=== PATIENT | female | born 1965 | race Caucasian/White ===

== ENCOUNTER → 2017-07-10 | Day surgery (SDC) | payer BC ==
[2017-07-10 07:25] VITALS: RESP 16; BMI 23.8
[2017-07-10 09:25] VITALS: BP 164/91; PULSE 71; TEMP 98.9
--- NOTE | 2017-07-10 10:35 | PCN ---
PROCEDURE NOTE Marion is a 52-year-old white female who on routine mammogram was noted to have new microcalcifications in the right breast just lateral and inferior area of the breast. Recommendations, there were actually 2 clusters of calcifications which looked very similar in close proximity to each other and it was recommended that at least 1 of these be sampled. The patient had a physical examination performed and on multi- positional exam of each breast, no dominant mass or nodules of concern were noted. The patient had no axillary adenopathy of concern. PROCEDURE: The patient was taken to the in the stereotactic unit and after review of the radiographs, it was determined to approach the lesion CC from below. The patient's breast was placed in the aperture and radiographs were obtained to identify the microcalcifications. After this had been accomplished, the breast was prepped in a sterile fashion using Betadine; 1% lidocaine was used to anesthetize the skin. This was lidocaine without epinephrine. A vacuum-assisted 9 gauge needle was driven to the correct coordinates and multiple core biopsies, 13 were obtained. Radiograph of the specimen revealed that the area of concern had been adequately sampled with microcalcifications in the specimen. Following this, a secure savi clip was placed. The specimen was sent to pathology and patient will follow with Dr. Bonilla in 1 week. Please note that prior to the procedure, risks and benefits of the procedure were thoroughly discussed with the patient and alternatives to stereo biopsy were not felt to be applicable in this case, IE open biopsy or ultrasound core biopsy. MMODL / IJN: [id number] /
--- NOTE | 2017-07-10 11:43 | MM ---
EXAMINATION TYPE: MG stereo VAD BX RT DATE OF EXAM: 07/10/2017 COMPARISON: Outside diagnostic and screening exam dated 06/21/2017 and 06/07/2017 respectively. CLINICAL HISTORY: Indeterminate right breast calcifications within the lower, central and slightly outer quadrant TECHNIQUE: Stereotactic guided core biopsy of right breast. FINDINGS: The procedure of stereotactic guided core biopsy was explained to the patient. Benefits, alternatives, and risks were discussed. An informed consent was then obtained. Preprocedural timeout was performed. [facility] was chosen. Shortness pathway was CC from below approach. I performed the localization, then surgeon, Dr. Chao performed the remainder of the procedure. A vacuum assisted biopsy gun was used to obtain multiple core samples. The patient tolerated the procedure well without any immediate complication. The patient was kept in the radiology department for short stay after the procedure and then discharged home in stable condition. Targeted calcifications are identified in specimen mammogram. Post biopsy mammogram shows the T-shaped biopsy marker to appear in satisfactory position relative to the targeted area of concern on the preprocedure images. IMPRESSION: SUCCESSFUL, UNCOMPLICATED STEREOTACTIC GUIDED CORE BIOPSY OF AN INDETERMINATE GROUP OF CALCIFICATIONS WITH LOW SUSPICION IN THE RIGHT BREAST, FULL PATHOLOGY RESULTS TO FOLLOW. Pathology Results: Benign RIGHT BREAST, STEREOTACTIC CORE BIOPSIES: FIBROCYSTIC AND FIBROADENOMATOUS CHANGE WITH FOCI OF DYSTROPHIC CALCIFICATION. Recommendation Follow up mammogram of the right breast in 6 months. MTDD
== END ==
LOC: RADMAMWWP 07:13
PROVIDERS: ATTEND Surgery
DX: N60.11 Diffuse cystic mastopathy of right breast (principal); R92.1 Mammographic calcification found on diagnostic imaging of breast
CPT/HCPCS: 88305; 19081; A4648; J2001

== ENCOUNTER → 2018-01-11 | Outpatient (CLI) | payer BC ==
--- NOTE | 2018-01-11 10:25 | MM ---
Reason for exam: follow-up at short interval from prior study. History: Patient is postmenopausal and is nulliparous. Family history of breast cancer in maternal aunt at age 55 and breast cancer in maternal grandmother at age 70. Benign MG stereo VAD BX RT of the right breast, July 10, 2017. Taking estrogen beginning at age 52. Physical Findings: Nurse did not find any significant physical abnormalities on exam. MG 3D Diag Mammo W/Cad RT CC and MLO view(s) were taken of the right breast. The breast tissue is extremely dense which could obscure a lesion on mammography. Stable scattered calcifications. Previous mammotome biopsy in the right breast. No significant new findings when compared with previous films. These results were verbally communicated with the patient and result sheet given to the patient on 01/11/18. ASSESSMENT: Benign, BI-RAD 2 RECOMMENDATION: Routine screening mammogram of both breasts in 6 months. Back on schedule.
== END | disposition home or self-care (01) ==
LOC: RADMAMWWP 09:33
PROVIDERS: ATTEND Obstetrics & Gynecology
DX: R92.8 Other abnormal and inconclusive findings on diagnostic imaging of breast (principal)
CPT/HCPCS: 77061; 77065

== ENCOUNTER → 2018-08-06 | Outpatient (CLI) | payer BC ==
--- NOTE | 2018-08-07 09:13 | MM ---
Reason for exam: screening (asymptomatic). Last mammogram was performed 7 months ago. History: Patient is postmenopausal and is nulliparous. Family history of breast cancer in maternal aunt at age 55 and breast cancer in maternal grandmother at age 70. Benign MG stereo VAD BX RT of the right breast, July 10, 2017. Taking estrogen beginning at age 52. Physical Findings: A clinical breast exam by your physician is recommended on an annual basis and results should be correlated with mammographic findings. MG 3D Screening Mammo W/Cad Bilateral CC and MLO view(s) were taken. Prior study comparison: January 11, 2018, right breast MG 3d diag mammo w/cad RT. June 07, 2017, mammogram. The breast tissue is extremely dense which could obscure a lesion on mammography. Finding: There are typically benign vascular, dystrophic, round calcifications in both breasts. Previous mammotome biopsy in the right breast. There is no discrete abnormality. ASSESSMENT: Benign, BI-RAD 2 RECOMMENDATION: Routine screening mammogram of both breasts in 1 year.
== END ==
LOC: RADMAMWWP 11:18
PROVIDERS: ATTEND Family Medicine
DX: Z12.31 Encounter for screening mammogram for malignant neoplasm of breast (principal)
CPT/HCPCS: 77063; 77067

== ENCOUNTER → 2020-02-20 | Outpatient (CLI) | payer BC ==
--- NOTE | 2020-02-24 08:20 | MM ---
Reason for exam: screening (asymptomatic). Last mammogram was performed 1 year and 6 months ago. History: Patient is postmenopausal and is nulliparous. Family history of breast cancer in maternal aunt at age 55 and breast cancer in maternal grandmother at age 70. Benign MG stereo VAD BX RT of the right breast, July 10, 2017. Taking estrogen beginning at age 52. Physical Findings: A clinical breast exam by your physician is recommended on an annual basis and results should be correlated with mammographic findings. MG 3D Screening Mammo W/Cad Bilateral CC and MLO view(s) were taken. Prior study comparison: August 06, 2018, bilateral MG 3d screening mammo w/cad. January 11, 2018, right breast MG 3d diag mammo w/cad RT. The breast tissue is extremely dense which could obscure a lesion on mammography. Benign appearing bilateral calcifications. ASSESSMENT: Benign, BI-RAD 2 RECOMMENDATION: Routine screening mammogram of both breasts in 1 year.
== END | disposition home or self-care (01) ==
LOC: RADMAMWWP 12:53
PROVIDERS: ATTEND Obstetrics & Gynecology
DX: Z12.31 Encounter for screening mammogram for malignant neoplasm of breast (principal); Z80.3 Family history of malignant neoplasm of breast
CPT/HCPCS: 77063; 77067

== ENCOUNTER → 2021-05-12 | Outpatient (CLI) | payer BC ==
--- NOTE | 2021-05-13 12:02 | MM ---
Reason for exam: screening (asymptomatic). Last mammogram was performed 1 year and 3 months ago. History: Patient is postmenopausal and is nulliparous. Family history of breast cancer in maternal aunt at age 55 and breast cancer in maternal grandmother at age 70. Benign MG stereo VAD BX RT of the right breast, July 10, 2017. Taking estrogen beginning at age 52. Physical Findings: A clinical breast exam by your physician is recommended on an annual basis and results should be correlated with mammographic findings. MG 3D Screening Mammo W/Cad Bilateral CC and MLO view(s) were taken. Prior study comparison: February 20, 2020, bilateral MG 3d screening mammo w/cad. August 06, 2018, bilateral MG 3d screening mammo w/cad. The breast tissue is extremely dense which could obscure a lesion on mammography. There are benign appearing round, vascular, dystrophic calcifications bilaterally. There is no discrete abnormality. ASSESSMENT: Benign, BI-RAD 2 RECOMMENDATION: Routine screening mammogram of both breasts in 1 year. Some consider bilateral ultrasound surveillance in patient with extremely dense fibroglandular tissue.
== END | disposition home or self-care (01) ==
LOC: RADMAMWWP 15:46
PROVIDERS: ATTEND Obstetrics & Gynecology
DX: Z12.31 Encounter for screening mammogram for malignant neoplasm of breast (principal); Z78.0 Asymptomatic menopausal state; Z80.3 Family history of malignant neoplasm of breast
CPT/HCPCS: 77063; 77067

== ENCOUNTER → 2022-07-20 | Outpatient (CLI) | payer BC ==
--- NOTE | 2022-07-21 07:57 | MM ---
Reason for Exam: Screening (asymptomatic). Last mammogram was performed 1 year(s) and 2 month(s) ago. Patient History: Menarche at age 11. Patient has no children. Postmenopausal. Currently using Estrogen, starting at age 52. 07/10/2017, Benign Core Biopsy on the right side. Maternal grandmother had breast cancer, age 70. Maternal aunt had breast cancer, age 55. Risk Values: Gale 5 year model risk: 1.8%. NCI Lifetime model risk: 9.8%. Prior Study Comparison: 08/06/2018 Bilateral Screening Mammogram, [facility]. 02/20/2020 Bilateral Screening Mammogram, [facility]. 05/12/2021 Bilateral Screening Mammogram, [facility]. Tissue Density: The breast tissue is extremely dense which could obscure a lesion on mammography. Findings: Analyzed By CAD. There is no suspicious group of microcalcifications or new suspicious mass in either breast. Overall Assessment: Benign, BI-RAD 2 Management: Screening Mammogram of both breasts in 1 year. A clinical breast exam by your physician is recommended on an annual basis and results should be correlated with mammographic findings. Electronically signed and approved by: John Lopez M.D. Radiologis
== END | disposition home or self-care (01) ==
LOC: RADMAMWWP 09:20
PROVIDERS: ATTEND Obstetrics & Gynecology
DX: Z12.31 Encounter for screening mammogram for malignant neoplasm of breast (principal); Z78.0 Asymptomatic menopausal state; Z80.3 Family history of malignant neoplasm of breast; Z98.890 Other specified postprocedural states
CPT/HCPCS: 77063; 77067

== ENCOUNTER 2023-02-10 11:44 | Emergency (ER) | payer BC ==
[2023-02-10] MEDS ORDERED: hydrALAZINE HCL 20 MG/ML 1 ML VIAL IVP STA (12:08)
[2023-02-10 12:30] LABS: Basophils % (A) 1 %; Eosinophils # (A) 0.1 k/uL (0-0.7); Eosinophils % (A) 3 %; HCT 44.7 % (34.0-46.0); HGB 14.3 gm/dL (11.4-16.0); Lymphocytes # (A) 1.4 k/uL (1.0-4.8); Lymphocytes % (A) 26 %; MCH 27.8 pg (25.0-35.0); MCHC 31.9 g/dL (31.0-37.0); MCV 87.1 fL (80.0-100.0); Mean Platelet Volume 7.2; Monocytes # (A) 0.3 k/uL (0-1.0); Monocytes % (A) 5 %; Neutrophils # (A) 3.4 k/uL (1.3-7.7); Neutrophils % (A) 63 %; Platelet Count 325 k/uL (150-450); RBC 5.14 m/uL (3.80-5.40); RDW 12.9 % (11.5-15.5); WBC 5.5 k/uL (3.8-10.6)
[2023-02-10 12:41] LABS: INR 0.9 (<1.2); Partial Thromboplastin Time 23.2 sec (22.0-30.0); Prothrombin Time 9.8 sec (10.0-12.5)
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
[2023-02-10 12:57] VITALS: TEMP 98
--- NOTE | 2023-02-10 13:11 | XR ---
EXAMINATION TYPE: XR chest 2V DATE OF EXAM: 02/10/2023 12:49 PM CLINICAL INDICATION:Female, 57 years old with history of Chest Pain; [facility] COMPARISON: None TECHNIQUE: XR chest 2V Frontal and lateral views of the chest. FINDINGS: Lungs/Pleura: There is no evidence of pleural effusion, focal consolidation, or pneumothorax. Pulmonary vascularity: Unremarkable. Heart/mediastinum: Cardiomediastinal silhouette is unremarkable. Musculoskeletal: No acute osseous pathology. IMPRESSION: No acute cardiopulmonary disease/process.
[2023-02-10 13:13] LABS: ALT 40 U/L (4-34); AST 35 U/L (14-36); African American GFR (CKD) >90 (>60 ml/min/1.73 sqM); Albumin 4.7 g/dL (3.5-5.0); Alkaline Phosphatase 99 U/L (38-126); Anion Gap 11 mmol/L; Blood Urea Nitrogen 18 mg/dL (7-17); Calcium 10.1 mg/dL (8.4-10.2); Carbon Dioxide 24 mmol/L (22-30); Chloride 106 mmol/L (98-107); Glucose 106 mg/dL (74-99); Magnesium 2.2 mg/dL (1.6-2.3); Non-African American GFR(CKD) 83 (>60 ml/min/1.73 sqM); Potassium 5.6 mmol/L (3.5-5.1); Sodium 141 mmol/L (137-145); Total Bilirubin 0.4 mg/dL (0.2-1.3); Total Protein 7.8 g/dL (6.3-8.2)
--- NOTE | 2023-02-10 13:13 | CT ---
EXAMINATION TYPE: CT brain wo con CT DLP: 1100.4 mGycm, Automated exposure control for dose reduction was used. DATE OF EXAM: 02/10/2023 1:04 PM COMPARISON: None. CLINICAL INDICATION:Female, 57 years old with history of Headache, hypertension, headache, hypertensi on TECHNIQUE: Brain: Axial CT images of the brain were obtained with coronal and sagittal reformats created and rev iewed. Contrast used: None. Oral contrast used: None. FINDINGS: Brain: Extra-axial spaces: No abnormal extra-axial fluid collections. Ventricular system: Within normal limits Cerebral parenchyma: No acute intraparenchymal hemorrhage or mass effect. The whitmore-white junction is well differentiated. Cerebellum: Unremarkable. Mass effect: No evidence of midline shift. Intracranial vasculature: Atherosclerotic calcifications of the intracranial vessels. Soft tissues: Normal. Calvarium/osseous structures: No depressed skull fracture. Paranasal sinuses and mastoid air cells: Mild scattered paranasal sinus disease. Visualized orbits: Orbital contents are intact. IMPRESSION: No acute intracranial process.
[2023-02-10 14:38] VITALS: BP 138/85; PULSE 65; RESP 16
== END 2023-02-10 14:25 | disposition home or self-care (01) ==
LOC: EC 11:44
DX: I16.0 Hypertensive urgency (principal); I10 Essential (primary) hypertension; E87.5 Hyperkalemia; Z86.59 Personal history of other mental and behavioral disorders
CPT/HCPCS: 36415; 93005; 80053; 83735; 84484; 85025; 85610; 85730; 71046; 70450; 99285; 96374; J0360

== ENCOUNTER → 2023-03-20 | Outpatient (CLI) | payer BC ==
--- NOTE | 2023-03-20 12:01 | CA ---
Exercise Stress Test Report Name: Marion Tabares Exam Date: 03/20/2023 11:09 Exam Location: [facility] Stress Ht (in): 62 Wt (lb): 138 BSA: 1.63 Ordering Phys: Ollie Hong MD Referring Phys: RICHIE,, Technologist: Rubén Navarrete Age: 57 Gender: F : 1965 Procedure CPT: Indications: I10 Essential hypertension, R07.89 chest pain ICD-10 Codes: Patient History: PALPITATIONS, HTN, ELEVATED CHOLESTEROL LEVELS, FAMILY HX OF HEART DISEASE, PRIOR SMOKER Medications: METOPROLOL,,,,,, LIPITOR,,,,,, PRILOSEC,,,,, Meds past 24 hrs: Pretest Chest Pain: STRESS TEST Ned Protocol Exercise Duration (min:sec): 09:[address] Depressions (mm): Angina Score: Donald Score: Resting HR (bpm): 88 Peak HR (bpm): 156 Resting BP (mmHg): 175 / 85 Peak BP (mmHg): 214 / 99 MPHR: 161 Target HR: 137 % MPHR: 97 METS: 10.3 Total Dose: Peak Dose: Atropine: Double Product: 65654 BP Response: Stress Termination: TARGET HR REACHED/MAX EXERTION Stress Symptoms: NO SYMPTOMS Stress Summary: ECG ANALYSIS Resting ECG: Normal sinus rhythm normal axis normal intervals Stress ECG: Patient exercised on Ned protocol for 9 minutes achieving 10 mets 85% of predicted maximal heart rate without chest pain. At peak exercise there was half a millimeter upsloping ST segment depression noted CONCLUSIONS Good exercise tolerance Mildly abnormal EKG part of the stress test Dr. Asad Forrest MD (Electronically Signed) Final Date: 20 March 2023 12:00
== END | disposition home or self-care (01) ==
LOC: RADNMMAIN 10:35
PROVIDERS: ATTEND Family Medicine
DX: R94.31 Abnormal electrocardiogram [ECG] [EKG] (principal); I10 Essential (primary) hypertension; E78.00 Pure hypercholesterolemia, unspecified; R07.89 Other chest pain
CPT/HCPCS: 93017

== ENCOUNTER → 2023-08-02 | Outpatient (CLI) | payer BC ==
--- NOTE | 2023-08-03 14:15 | MM ---
Reason for Exam: Screening (asymptomatic). Last mammogram was performed 1 year(s) and 1 month(s) ago. Patient History: Menarche at age 11. Patient has no children. Postmenopausal. Currently using Estrogen, starting at age 52. 09/04/1989, Excisional Biopsy on the Right side. 07/10/2017, Benign Core Biopsy on the right side. Maternal grandmother had breast cancer, age 70. Maternal aunt had breast cancer, age 55. Risk Values: Gale 5 year model risk: 2.4%. NCI Lifetime model risk: 11.9%. Prior Study Comparison: 02/20/2020 Bilateral Screening Mammogram, [facility]. 05/12/2021 Bilateral Screening Mammogram, [facility]. 07/20/2022 Bilateral MG 3D screening mammo w/cad, [facility]. Tissue Density: The breasts are heterogeneously dense, which may obscure small masses. Findings: Analyzed By CAD. There is no suspicious group of microcalcifications or new suspicious mass in either breast. Overall Assessment: Benign, BI-RAD 2 Management: Screening Mammogram of both breasts in 1 year. . Patient should continue monthly self-breast exams. A clinical breast exam by your physician is recommended on an annual basis. This exam should not preclude additional follow-up of suspicious palpable abnormalities. Note on Gale scores and lifetime risk: 1. A Gale score greater than 3% is considered moderate risk. If this is the case, consider specialist referral to assess eligibility for a risk reducing agent. 2. If overall lifetime risk for the development of breast cancer is 20% or higher, the patient may qualify for future screening with alternating mammogram and breast MRI. Electronically signed and approved by: John Lopez M.D. Radiologis
== END | disposition home or self-care (01) ==
LOC: RADMAMWWP 09:11
PROVIDERS: ATTEND Family Medicine
DX: Z12.31 Encounter for screening mammogram for malignant neoplasm of breast (principal); Z80.3 Family history of malignant neoplasm of breast; Z78.0 Asymptomatic menopausal state
CPT/HCPCS: 77063; 77067

== ENCOUNTER → 2024-08-14 | Outpatient (CLI) | payer BC ==
--- NOTE | 2024-08-14 14:43 | MM ---
Reason for Exam: Screening (asymptomatic). Last screening mammogram was performed 12 month(s) ago. Patient History: Menarche at age 11. Patient has no children. Postmenopausal. Currently using Estrogen, starting at age 52. 09/04/1989, Excisional Biopsy on the Right side. 07/10/2017, Benign Core Biopsy on the right side. Maternal grandmother had breast cancer, age 70. Maternal aunt had breast cancer, age 55. Risk Values: Gale 5 year model risk: 2.5%. NCI Lifetime model risk: 11.6%. Prior Study Comparison: 05/12/2021 Bilateral Screening Mammogram, [facility]. 07/20/2022 Bilateral MG 3D screening mammo w/cad, [facility]. 08/02/2023 Bilateral MG 3D screening mammo w/cad, [facility]. Tissue Density: The breasts are extremely dense, which lowers the sensitivity of mammography. Findings: Analyzed By CAD. There is no suspicious group of microcalcifications or new suspicious mass in either breast. Overall Assessment: Benign, BI-RAD 2 Management: Screening Mammogram of both breasts in 1 year. . Patient should continue monthly self-breast exams. A clinical breast exam by your physician is recommended on an annual basis. This exam should not preclude additional follow-up of suspicious palpable abnormalities. Note on Gale scores and lifetime risk: 1. A Gale score greater than 3% is considered moderate risk. If this is the case, consider specialist referral to assess eligibility for a risk reducing agent. 2. If overall lifetime risk for the development of breast cancer is 20% or higher, the patient may qualify for future screening with alternating mammogram and breast MRI. [facility], , 08/14/2024 2:40 PM. Electronically signed and approved by: John Lopez M.D. Radiologis
== END | disposition home or self-care (01) ==
LOC: RADMAMWWP 14:16
PROVIDERS: ATTEND Family Medicine
DX: Z12.31 Encounter for screening mammogram for malignant neoplasm of breast (principal); R92.343 Mammographic extreme density, bilateral breasts; Z78.0 Asymptomatic menopausal state; Z80.3 Family history of malignant neoplasm of breast
CPT/HCPCS: 77063; 77067